=== PATIENT | female | born 1985 | race Hispanic/Latino ===

== ENCOUNTER 2022-05-07 17:26 | Inpatient (IN) | payer BC ==
[~2022-05-07] VITALS: Ht 162.6 cm; Wt 122.5 kg
[2022-05-07 18:20] LABS: EOSINOPHILS # (AUTO) 0.1 (0.0-0.4); EOSINOPHILS % 1.8 % (0.0-6.0); LYMPHOCYTES # (AUTO) 1.9 (1.0-3.2); LYMPHOCYTES % 37.5 % (18.0-39.1); MEAN CORPUSCULAR HEMOGLOBIN 40.9 pg (28-32); MEAN CORPUSCULAR HGB CONC 35.2 g/dL (31-35); MEAN CORPUSCULAR VOLUME 116.1 fL (81-99); MONOCYTES # (AUTO) 0.3 (0.2-0.8); MONOCYTES % 5.3 % (4.4-11.3); NEUTROPHILS # (AUTO) 2.3 (2.1-6.9); NEUTROPHILS % 47.5 % (38.7-80.0); RED BLOOD COUNT 1.37 x10e6/uL (3.6-5.1); RED CELL DISTRIBUTION WIDTH 13.3 % (11.7-14.4)
[2022-05-07 18:22] LABS: HEMATOCRIT 15.9 % (34.2-44.1); HEMOGLOBIN 5.6 g/dL (12.0-16.0); PLATELET COUNT 90 x10e3/uL (140-360)
[2022-05-07 18:27] LABS: INR 0.94; PARTIAL THROMBOPLASTIN TIME 26.8 seconds (23.8-35.5); PROTHROMBIN TIME 13.4 seconds (11.9-14.5)
[2022-05-07] MEDS ORDERED: SODIUM CHLORIDE 0.9% 250ML 250 ML IV ONE (18:30)
[2022-05-07 18:34] LABS: ANION GAP 13.8 mmol/L (8-16); CALCIUM 8.7 mg/dL (8.4-10.2); CREATININE, SERUM 0.59 mg/dL (0.57-1.11); POTASSIUM 3.8 mmol/L (3.5-5.1)
[2022-05-07] MEDS ORDERED: SODIUM CHLORIDE FLUSH 10 ML SYR INJ PRN (19:00)
[2022-05-07] MEDS ORDERED: ONDANSETRON HCL INJ 2MG/ML 2ML 2 MG/ML VIAL IV PRN (19:00)
[2022-05-07 19:30] LABS: FERRITIN 471.06 ng/mL (4.63-204.00)
[2022-05-07 21:00] VITALS: BP 161/56
[2022-05-08] VITALS (10 sets, daily range): BP systolic 112–146; BP diastolic 56–86
[2022-05-08] MEDS ORDERED: SODIUM CHLORIDE 0.9% 250ML 500 ML ONE (00:05)
[2022-05-08 06:18] LABS: CALCIUM 8.3 mg/dL (8.4-10.2); CREATININE, SERUM 0.64 mg/dL (0.57-1.11)
[2022-05-08 07:14] LABS: BASOPHILS % 0.2 % (0.0-1.0); EOSINOPHILS # (AUTO) 0.1 (0.0-0.4); EOSINOPHILS % 2.8 % (0.0-6.0); HEMOGLOBIN 7.2 g/dL (12.0-16.0); LYMPHOCYTES # (AUTO) 1.9 (1.0-3.2); LYMPHOCYTES % 44.1 % (18.0-39.1); MEAN CORPUSCULAR HEMOGLOBIN 35.6 pg (28-32); MEAN CORPUSCULAR HGB CONC 34.8 g/dL (31-35); MEAN CORPUSCULAR VOLUME 102.5 fL (81-99); MONOCYTES # (AUTO) 0.2 (0.2-0.8); MONOCYTES % 5.1 % (4.4-11.3); NEUTROPHILS # (AUTO) 1.8 (2.1-6.9); NEUTROPHILS % 40.9 % (38.7-80.0); PLATELET COUNT 72 x10e3/uL (140-360); RED BLOOD COUNT 2.02 x10e6/uL (3.6-5.1)
[2022-05-08 07:21] LABS: HEMATOCRIT 20.7 % (34.2-44.1)
[2022-05-08 07:49] LABS: ANISOCYTOSIS MODERATE; BAND NEUTROPHILS % (MANUAL) 2 %; EOSINOPHILS % (MANUAL) 3 % (0-7); LYMPHOCYTES % (MANUAL) 54 % (19-48); MONOCYTES % (MANUAL) 3 % (3.4-9.0); NEUTROPHILS % (MANUAL) 37 % (40-74); PLATELET ESTIMATE MODERATELY DECREASED; PLATELET MORPHOLOGY COMMENT NORMAL; RBC MORPHOLOGY COMMENT ABNORMAL
[2022-05-08 08:25] LABS: COLOR,URINE YELLOW (YELLOW)
[2022-05-08 08:26] LABS: CLARITY,URINE CLEAR (CLEAR); KETONES,URINE NEGATIVE (NEGATIVE); LEUKOCYTE ESTERASE ,URINE NEGATIVE (NEGATIVE); NITRITE,URINE NEGATIVE (NEGATIVE); PROTEIN,URINE DIPSTICK NEGATIVE (NEGATIVE)
[2022-05-08 08:43] LABS: BACTERIA,URINE FEW /HPF; EPITHELIAL CELLS,URINE FEW /LPF; RBC,URINE 0-5 /HPF (0-5); WBC,URINE (MAN) 0-5 /HPF (0-5)
[2022-05-09] VITALS (8 sets, daily range): BP systolic 107–141; BP diastolic 51–76
[2022-05-09 06:29] LABS: BASOPHILS % 0.3 % (0.0-1.0); EOSINOPHILS # (AUTO) 0.1 (0.0-0.4); EOSINOPHILS % 2.9 % (0.0-6.0); LYMPHOCYTES # (AUTO) 1.7 (1.0-3.2); LYMPHOCYTES % 45.4 % (18.0-39.1); MEAN CORPUSCULAR HGB CONC 36.3 g/dL (31-35); MEAN CORPUSCULAR VOLUME 102.1 fL (81-99); MONOCYTES # (AUTO) 0.2 (0.2-0.8); MONOCYTES % 5.3 % (4.4-11.3); NEUTROPHILS # (AUTO) 1.5 (2.1-6.9); NEUTROPHILS % 38.7 % (38.7-80.0); RED BLOOD COUNT 1.89 x10e6/uL (3.6-5.1)
[2022-05-09 06:35] LABS: HEMATOCRIT 19.3 % (34.2-44.1)
[2022-05-09 06:36] LABS: PLATELET COUNT 64 x10e3/uL (140-360)
[2022-05-09 06:48] LABS: ANION GAP 12.7 mmol/L (8-16); CALCIUM 8.1 mg/dL (8.4-10.2); CREATININE, SERUM 0.57 mg/dL (0.57-1.11); POTASSIUM 3.7 mmol/L (3.5-5.1)
[2022-05-09 09:30] LABS: EOSINOPHILS % (MANUAL) 5 % (0-7); LYMPHOCYTES % (MANUAL) 38 % (19-48); METAMYELOCYTES % (MANUAL) 1 % (0-0); MONOCYTES % (MANUAL) 1 % (3.4-9.0); NEUTROPHILS % (MANUAL) 54 % (40-74)
[2022-05-09 09:30] LABS: ALBUMIN 3.4 g/dL (3.5-5.0); BILIRUBIN,DIRECT 0.6 mg/dL (0.0-0.5)
[2022-05-09 09:34] LABS: PLATELET ESTIMATE MODERATELY DECREASED; PLATELET MORPHOLOGY COMMENT NORMAL; RBC MORPHOLOGY COMMENT ABNORMAL
[2022-05-09 09:35] LABS: MICROCYTOSIS MODE; POIKILOCYTOSIS SLIGHT
[2022-05-09 09:36] LABS: ANISOCYTOSIS MODE
[2022-05-09 14:27] LABS: HEMOGLOBIN 7.3 g/dL (12.0-16.0)
[2022-05-09 14:34] LABS: HEMATOCRIT 21.1 % (34.2-44.1)
[2022-05-09] MEDS ORDERED: VITAMIN B-121000 MCG PO (17:29)
[2022-05-09] MEDS ORDERED: FEOSOL325 MG PO (17:29)
[2022-05-09] MEDS ORDERED: CYANOCOBALAMIN INJ 1,000 MCG/ML VIAL IM ONE (21:30)
[2022-05-10] VITALS: BP 133/55
[2022-05-10 04:00] VITALS: BP 114/55
[2022-05-10 08:05] VITALS: BP 135/70
[2022-05-10 08:16] VITALS: BP 135/70
[2022-05-10] MEDS ORDERED: CYANOCOBALAMIN INJ 1,000 MCG/ML VIAL IM SCH (09:00)
[2022-05-10] MEDS ORDERED: VITAMIN C 500500 MG PO (09:42)
== END 2022-05-10 10:30 | disposition home or self-care (01) | DRG 812 ==
LOC: ER 17:51 → ERHOLD 18:50 → INTOOBSV 18:50 → MED/SURG3 21:45 → OBSVTOIN 05-09 21:25
PROVIDERS: ADMIT Internal Medicine; ATTEND Internal Medicine
PROC: 30233N1 Transfusion of Nonautologous Red Blood Cells into Peripheral Vein, Percutaneous Approach (ICD-10-PCS; principal; 2022-05-07)
DX: D64.9 Anemia, unspecified (principal); Z68.42 Body mass index [BMI] 45.0-49.9, adult; D69.6 Thrombocytopenia, unspecified; D61.818 Other pancytopenia; Z86.16 Personal history of COVID-19; N92.0 Excessive and frequent menstruation with regular cycle; E53.8 Deficiency of other specified B group vitamins; K76.0 Fatty (change of) liver, not elsewhere classified; E66.01 Morbid (severe) obesity due to excess calories; E80.6 Other disorders of bilirubin metabolism
CPT/HCPCS: 36415; 76700; 80048; 80076; 81001; 81025; 82607; 82728; 82746; 83540; 84443; 84466; 85014; 85018; 85025; 85610; 85730; 86850; 86900; 86920; 93005; 99284; G0378; J3420; J7050; P9016

== ENCOUNTER → 2022-07-09 | Day surgery (SDC) | payer BC, OTHER ==
[~2022-07-09] MED LIST: AMOXICILLIN500 MG PO; CLARITHROMYCIN250 MG PO; FENTANYL CITRATE/PF 100MCG/2 ML INJ ONE; FEOSOL325 MG PO; LIDOCAINE HCL 2% LOCAL INJ 5 ML SDV VIAL INJ ONE; MIDAZOLAM HCL 2 MG/2 ML VIAL ONE; MULTI-VITAMIN1 EACH PO; PROPOFOL IV EMULSION 10 MG/ML 20 ML VIAL ONE; PROTONIX20 MG PO; VIT B12 INJ; VITAMIN B-121000 MC4 IM; VITAMIN B-121000 MCG PO; VITAMIN C 500500 MG PO
[2022-07-09 12:35] VITALS: BP 110/70
== END | disposition home or self-care (01) ==
LOC: OR 08:42 → MERGE 10:30
PROVIDERS: ATTEND Internal Medicine Gastroenterology
DX: A04.8 Other specified bacterial intestinal infections (principal); K31.9 Disease of stomach and duodenum, unspecified; K29.70 Gastritis, unspecified, without bleeding; K21.9 Gastro-esophageal reflux disease without esophagitis; K59.09 Other constipation; Z86.010 Personal history of colon polyps; Z71.3 Dietary counseling and surveillance; D62 Acute posthemorrhagic anemia; E66.01 Morbid (severe) obesity due to excess calories; K44.9 Diaphragmatic hernia without obstruction or gangrene; Z88.2 Allergy status to sulfonamides; K38.8 Other specified diseases of appendix; F41.9 Anxiety disorder, unspecified; Z68.42 Body mass index [BMI] 45.0-49.9, adult; Z86.16 Personal history of COVID-19; Z80.0 Family history of malignant neoplasm of digestive organs
CPT/HCPCS: 43239; 81025; J2001; J2250; J2704; J3010